=== PATIENT | male | born 1970 | race African-American/Black ===

== ENCOUNTER 2024-04-12 19:40 | Inpatient (IN) | payer MEDICAID ==
[~2024-04-12] VITALS: Ht 175.2 cm; Wt 60.9 kg
[2024-04-12 20:38] VITALS: BP 124/76
[2024-04-12 21:19] LABS: BASO # 0.1 10*3/uL (0.0-0.1); BASO % 0.3 % (0.0-1.0); EOS # 0.1 10*3/uL (0.0-0.4); EOS % 0.5 % (1.0-4.0); MEAN CELL VOLUME 79.7 fl (80.0-94.0); MEAN CORPUSCULAR HGB 24.5 pg (27.0-31.0); MEAN CORPUSCULAR HGB CONC 30.7 g/dl (33.0-37.0); MEAN PLATELET VOLUME 7.9 fl (9.6-12.3); MONO # 1.4 10*3/uL (0.1-1.0); MONO % 9.3 % (3.0-9.0); NEUT # 11.5 10*3/uL (2.3-7.9); NEUT % 76.8 % (47.0-73.0); PLATELET COUNT AUTOMATED 696 10*3/uL (130-400); RED BLOOD COUNT 3.64 10*6/uL (4.50-5.90)
[2024-04-12 21:38] LABS: POTASSIUM 4.6 mmol/L (3.4-5.1)
[2024-04-13] VITALS (8 sets, daily range): BP systolic 111–128; BP diastolic 60–80
[2024-04-13] MEDS ORDERED: Acetaminophen/Hydrocodone 5 MG/325 MG TABLET PO ONE (01:55)
[2024-04-13] MEDS ORDERED: Ondansetron Hydrochloride 4 MG TAB SL ONE (01:55)
[2024-04-13 01:58] LABS: BILIRUBIN Negative (Negative); BLOOD 2+ (Negative); CLARITY Turbid (Clear); COLOR Yellow (Yellow); GLUCOSE Negative (Negative); KETONE Negative (Negative); LEUKO ESTERASE 3+ (Negative); NITRITE Positive (Negative); PH 5.5 (4.5-8.0); SPECIFIC GRAVITY 1.015 (1.001-1.030); UROBILINOGEN 0.2 E.U./dl (0.0-1.0)
[2024-04-13 02:05] LABS: URINE AMPHETAMINES Negative (1000ng/ml); URINE BARBITURATES Negative (200ng/ml); URINE BENZODIAZEPINES Negative (200ng/ml); URINE CANNABINOIDS (THC) Positive (50ng/ml); URINE COCAINE Positive (300ng/ml); URINE METHADONE Negative (300ng/ml); URINE OPIATES Negative (300ng/ml); URINE PHENCYCLIDINE Negative (25ng/ml)
[2024-04-13 02:20] LABS: RBC 16-20 rbc/hpf (0-2); WBC TNTC wbc/hpf (0-5)
[2024-04-13] MEDS ORDERED: SODIUM CHLORIDE 0.9% 1,000 ML IV SCH (02:25)
[2024-04-13] MEDS ORDERED: cefTRIAXone Sodium 1 GM/10 ML SYR IV ONE (02:25)
[2024-04-13] MEDS ORDERED: Vancomycin Hydrochloride 250 ML IV ONE (05:15)
[2024-04-13] MEDS ORDERED: ACETAMINOPHEN 650 MG SUPP R PRN (05:45)
[2024-04-13] MEDS ORDERED: ACETAMINOPHEN 325 MG TAB PO PRN (05:45)
[2024-04-13] MEDS ORDERED: Piperacillin Sodium/Tazobact 50 ML IV SCH ×2 (06:00→08:00)
[2024-04-13] MEDS ORDERED: FAMOTIDINE20 M1 PO (06:08)
[2024-04-13] MEDS ORDERED: QUALITY CHOICE80 MG PO (06:10)
[2024-04-13] MEDS ORDERED: NORTRIPTYLINE H50 M2 PO (06:11)
[2024-04-13] MEDS ORDERED: SENNA8.6 MG PO (06:12)
[2024-04-13] MEDS ORDERED: ONDANSETRON HYDR4 MG PO (06:13)
[2024-04-13] MEDS ORDERED: FEROSUL325 M1 PO (06:14)
[2024-04-13] MEDS ORDERED: ELIQUIS5 M1 PO (06:14)
[2024-04-13] MEDS ORDERED: MIDODRINE HCL5 M1 PO (06:15)
[2024-04-13] MEDS ORDERED: SODIUM BICARBO650 MG PO (06:15)
[2024-04-13] MEDS ORDERED: ACETAMINOPHEN500 M4 PO (06:17)
[2024-04-13] MEDS ORDERED: PHARMASSURE CHE30 MG PO (06:18)
[2024-04-13] MEDS ORDERED: FLUOXETINE HYDR20 M1 PO (06:19)
[2024-04-13] MEDS ORDERED: MELATONIN3 MG PO (06:19)
[2024-04-13 06:45] LABS: BASO % 0.4 % (0.0-1.0); EOS # 0.1 10*3/uL (0.0-0.4); EOS % 0.8 % (1.0-4.0); HEMATOCRIT 24.9 % (42.0-52.0); MEAN CELL VOLUME 78.8 fl (80.0-94.0); MEAN CORPUSCULAR HGB 24.7 pg (27.0-31.0); MEAN CORPUSCULAR HGB CONC 31.3 g/dl (33.0-37.0); MEAN PLATELET VOLUME 8.2 fl (9.6-12.3); MONO # 1.3 10*3/uL (0.1-1.0); MONO % 11.7 % (3.0-9.0); NEUT # 8.3 10*3/uL (2.3-7.9); NEUT % 73.4 % (47.0-73.0); PLATELET COUNT AUTOMATED 566 10*3/uL (130-400); RED BLOOD COUNT 3.16 10*6/uL (4.50-5.90); RED CELL DISTRI WIDTH 16.8 % (0-14.5); WHITE BLOOD COUNT 11.3 10*3/uL (4.8-10.8)
[2024-04-13 06:51] LABS: ALKALINE PHOSPHATASE 126 U/L (46-116); BUN 24 mg/dl (9-23); CHLORIDE 101 mmol/L (98-107); POTASSIUM 4.7 mmol/L (3.4-5.1); TOTAL PROTEIN 7.9 gm/dL (6.0-8.0)
[2024-04-13 07:07] LABS: SGPT/ALT < 7 U/L (5-49)
[2024-04-13] MEDS ORDERED: Polyethylene Glycol 3350 17 GM PACKET PO SCH (10:00)
[2024-04-13] MEDS ORDERED: APIXABAN 5 MG TAB PO SCH (10:00)
[2024-04-13] MEDS ORDERED: IOHEXOL 300 MG/ML 100 ML VIAL IV ONE (11:50)
[2024-04-13] MEDS ORDERED: VANCOMYCIN/WATER FOR INJ (PEG) 250 ML IV SCH (18:00)
[2024-04-13] MEDS ORDERED: BISACODYL 5 MG TAB PO PRN (23:25)
[2024-04-13] MEDS ORDERED: Magnesium Hydroxide 30 ML UDC PO PRN (23:25)
[2024-04-13] MEDS ORDERED: Acetaminophen/Hydrocodone 5 MG/325 MG TABLET PO PRN (23:25)
[2024-04-13] MEDS ORDERED: BISACODYL 10 MG SUPP R PRN (23:25)
[2024-04-13] MEDS ORDERED: MORPHINE Sulfate 2 MG/ML SYR IV PRN (23:25)
[2024-04-14] VITALS: BP 93/50
[2024-04-14 05:13] LABS: ALKALINE PHOSPHATASE 124 U/L (46-116); BUN 16 mg/dl (9-23); CHLORIDE 99 mmol/L (98-107); POTASSIUM 4.3 mmol/L (3.4-5.1); SGPT/ALT 8 U/L (5-49); TOTAL PROTEIN 7.8 gm/dL (6.0-8.0)
[2024-04-14 06:16] LABS: BASO # 0.1 10*3/uL (0.0-0.1); BASO % 0.5 % (0.0-1.0); EOS # 0.2 10*3/uL (0.0-0.4); EOS % 1.6 % (1.0-4.0); HEMATOCRIT 24.9 % (42.0-52.0); MEAN CELL VOLUME 78.8 fl (80.0-94.0); MEAN CORPUSCULAR HGB 24.7 pg (27.0-31.0); MEAN CORPUSCULAR HGB CONC 31.3 g/dl (33.0-37.0); MEAN PLATELET VOLUME 8.3 fl (9.6-12.3); MONO # 0.7 10*3/uL (0.1-1.0); MONO % 6.5 % (3.0-9.0); NEUT # 8.7 10*3/uL (2.3-7.9); NEUT % 85.1 % (47.0-73.0); PLATELET COUNT AUTOMATED 679 10*3/uL (130-400); RED BLOOD COUNT 3.16 10*6/uL (4.50-5.90); RED CELL DISTRI WIDTH 16.7 % (0-14.5); WHITE BLOOD COUNT 10.3 10*3/uL (4.8-10.8)
[2024-04-14 08:00] VITALS: BP 120/64
[2024-04-14] MEDS ORDERED: Sodium Hypochlorite 0.25% (1/2 STRENGTH DAKIN'S) 480 ML SOL T SCH (10:00)
[2024-04-14 12:00] VITALS: BP 105/62
[2024-04-14] MEDS ORDERED: Piperacillin Sodium/Tazobact 50 ML IV SCH (18:00)
[2024-04-14 20:00] VITALS: BP 112/56
[2024-04-14] MEDS ORDERED: Melatonin 5 MG TABLET PO PRN (23:10)
[2024-04-15] VITALS: BP 114/56
[2024-04-15 06:21] LABS: BUN 11 mg/dl (9-23); CHLORIDE 103 mmol/L (98-107)
[2024-04-15 06:26] LABS: BASO % 0.6 % (0.0-1.0); EOS # 0.2 10*3/uL (0.0-0.4); EOS % 3.4 % (1.0-4.0); HEMATOCRIT 25.4 % (42.0-52.0); MEAN CELL VOLUME 79.9 fl (80.0-94.0); MEAN CORPUSCULAR HGB 24.8 pg (27.0-31.0); MEAN CORPUSCULAR HGB CONC 31.1 g/dl (33.0-37.0); MEAN PLATELET VOLUME 8.2 fl (9.6-12.3); MONO # 0.6 10*3/uL (0.1-1.0); MONO % 9.1 % (3.0-9.0); NEUT # 5.2 10*3/uL (2.3-7.9); PLATELET COUNT AUTOMATED 626 10*3/uL (130-400); RED BLOOD COUNT 3.18 10*6/uL (4.50-5.90); RED CELL DISTRI WIDTH 16.8 % (0-14.5); WHITE BLOOD COUNT 6.8 10*3/uL (4.8-10.8)
[2024-04-15 08:00] VITALS: BP 101/58
[2024-04-15] MEDS ORDERED: Ondansetron Hydrochloride 4 MG/2 ML VIAL IV PRN (09:05)
[2024-04-15] MEDS ORDERED: FOAM BANDAGE 1 EACH BANDAGE T ONE ×2 (10:26→11:00)
[2024-04-15] MEDS ORDERED: FOAM BANDAGE HEEL T ONE (10:26)
[2024-04-15] MEDS ORDERED: LEPTOSPERMUM HONEY 0.5 OZ TUBE T ONE (10:59)
[2024-04-15 12:00] VITALS: BP 104/62
[2024-04-15 16:00] VITALS: BP 122/58
[2024-04-15] MEDS ORDERED: METRONIDAZOLE500 M1 PO (17:08)
[2024-04-15] MEDS ORDERED: CEFTRIAXONE2 G1 IV (17:08)
[2024-04-15] MEDS ORDERED: VANC1PIG IV (17:08)
[2024-04-15 20:00] VITALS: BP 121/66
[2024-04-15] MEDS ORDERED: METHOCARBAMOL500 M1 PO (21:39)
[2024-04-15] MEDS ORDERED: GABAPENTIN800 MG PO (21:41)
[2024-04-15] MEDS ORDERED: ACETAMINOPHEN 500 MG TAB PO PRN (21:45)
[2024-04-15] MEDS ORDERED: SIMETHICONE 80 MG TAB PO PRN (21:45)
[2024-04-15] MEDS ORDERED: Melatonin 3 MG TABLET PO PRN (21:45)
[2024-04-15] MEDS ORDERED: METHOCARBAMOL 500 MG TAB PO PRN (21:50)
[2024-04-15] MEDS ORDERED: NORTRIPTYLINE HYDROCHLORIDE PO SCH (22:00)
[2024-04-15] MEDS ORDERED: Sennosides A and B 8.6 MG TAB PO SCH (22:00)
[2024-04-15] MEDS ORDERED: GABAPENTIN 800 MG TAB PO SCH (22:00)
[2024-04-16] VITALS: BP 123/55
[2024-04-16 04:00] VITALS: BP 126/65
[2024-04-16] MEDS ORDERED: VANCOMYCIN/WATER FOR INJ (PEG) 250 ML IV SCH (06:00)
[2024-04-16 06:27] LABS: BASO % 0.3 % (0.0-1.0); EOS # 0.3 10*3/uL (0.0-0.4); EOS % 3.7 % (1.0-4.0); HEMATOCRIT 24.5 % (42.0-52.0); MEAN CELL VOLUME 80.6 fl (80.0-94.0); MEAN CORPUSCULAR HGB 24.3 pg (27.0-31.0); MEAN CORPUSCULAR HGB CONC 30.2 g/dl (33.0-37.0); MEAN PLATELET VOLUME 7.8 fl (9.6-12.3); MONO # 0.7 10*3/uL (0.1-1.0); MONO % 9.8 % (3.0-9.0); NEUT % 71.4 % (47.0-73.0); PLATELET COUNT AUTOMATED 658 10*3/uL (130-400); RED BLOOD COUNT 3.04 10*6/uL (4.50-5.90); RED CELL DISTRI WIDTH 16.8 % (0-14.5)
[2024-04-16 06:45] LABS: BUN 9 mg/dl (9-23); CHLORIDE 105 mmol/L (98-107); POTASSIUM 4.6 mmol/L (3.4-5.1)
[2024-04-16 08:00] VITALS: BP 142/79
[2024-04-16] MEDS ORDERED: Midodrine Hydrochloride 5 MG TAB PO SCH (08:00)
[2024-04-16] MEDS ORDERED: FAMOTIDINE 20 MG TAB PO SCH (10:00)
[2024-04-16] MEDS ORDERED: FLUoxetine Hydrochloride 20 MG CAP PO SCH (10:00)
[2024-04-16] MEDS ORDERED: SODIUM BICARBONATE 650 MG TAB PO SCH (10:00)
[2024-04-16 12:00] VITALS: BP 128/68
[2024-04-16] MEDS ORDERED: LEPTOSPERMUM HONEY 4 X 5 INCH WOUND DRESSING T ONE (13:18)
[2024-04-16] MEDS ORDERED: FOAM BANDAGE HEEL T ONE (13:18)
[2024-04-16] MEDS ORDERED: FOAM BANDAGE 1 EACH BANDAGE T ONE (13:18)
[2024-04-16] MEDS ORDERED: IOHEXOL 300 MG/ML 100 ML VIAL IV ONE (15:15)
[2024-04-16] MEDS ORDERED: IOHEXOL 300 MG/ML 100 ML VIAL ONE (15:31)
[2024-04-16 16:00] VITALS: BP 125/79
[2024-04-16 20:00] VITALS: BP 128/64
[2024-04-17 00:24] VITALS: BP 129/65
[2024-04-17 04:00] VITALS: BP 132/68
[2024-04-17 05:53] LABS: BUN 8 mg/dl (9-23); CHLORIDE 105 mmol/L (98-107); POTASSIUM 4.3 mmol/L (3.4-5.1)
[2024-04-17 06:02] LABS: BASO % 0.4 % (0.0-1.0); EOS # 0.2 10*3/uL (0.0-0.4); EOS % 2.9 % (1.0-4.0); HEMATOCRIT 23.4 % (42.0-52.0); MEAN CELL VOLUME 80.1 fl (80.0-94.0); MEAN CORPUSCULAR HGB 24.7 pg (27.0-31.0); MEAN CORPUSCULAR HGB CONC 30.8 g/dl (33.0-37.0); MEAN PLATELET VOLUME 7.8 fl (9.6-12.3); MONO # 0.6 10*3/uL (0.1-1.0); MONO % 8.9 % (3.0-9.0); NEUT # 5.1 10*3/uL (2.3-7.9); NEUT % 70.7 % (47.0-73.0); PLATELET COUNT AUTOMATED 585 10*3/uL (130-400); RED BLOOD COUNT 2.92 10*6/uL (4.50-5.90); WHITE BLOOD COUNT 7.2 10*3/uL (4.8-10.8)
[2024-04-17 08:00] VITALS: BP 124/73
[2024-04-17] MEDS ORDERED: FERROUS SULFATE 325 MG TAB PO SCH (10:00)
[2024-04-17 12:00] VITALS: BP 135/65
[2024-04-17] MEDS ORDERED: FOAM BANDAGE 1 EACH BANDAGE T ONE ×2 (12:43→13:23)
[2024-04-17] MEDS ORDERED: Lactobacillus Acidophilus/LA 1 TAB TAB PO SCH (14:35)
[2024-04-17 16:00] VITALS: BP 127/58
[2024-04-17 20:00] VITALS: BP 103/75
[2024-04-17] MEDS ORDERED: NYSTATIN 500,000 UNITS/5 ML UDC PO SCH (22:00)
[2024-04-17 22:04] LABS: BILIRUBIN Negative (Negative); BLOOD 2+ (Negative); CLARITY Cloudy (Clear); COLOR Yellow (Yellow); GLUCOSE Negative (Negative); KETONE Negative (Negative); LEUKO ESTERASE 3+ (Negative); NITRITE Negative (Negative); PH 5.5 (4.5-8.0); UROBILINOGEN 0.2 E.U./dl (0.0-1.0)
[2024-04-17 22:14] LABS: BACTERIA 2+; RBC 21-30 rbc/hpf (0-2); WBC 51-100 wbc/hpf (0-5)
[2024-04-18] VITALS: BP 133/67
[2024-04-18 04:00] VITALS: BP 129/66
[2024-04-18 06:02] LABS: BUN 9 mg/dl (9-23); CHLORIDE 105 mmol/L (98-107); POTASSIUM 4.2 mmol/L (3.4-5.1)
[2024-04-18 06:08] LABS: BASO # 0.1 10*3/uL (0.0-0.1); BASO % 0.5 % (0.0-1.0); EOS # 0.3 10*3/uL (0.0-0.4); EOS % 2.4 % (1.0-4.0); HEMATOCRIT 24.2 % (42.0-52.0); MEAN CELL VOLUME 80.4 fl (80.0-94.0); MEAN CORPUSCULAR HGB 24.9 pg (27.0-31.0); MEAN PLATELET VOLUME 7.8 fl (9.6-12.3); MONO # 0.8 10*3/uL (0.1-1.0); MONO % 8.1 % (3.0-9.0); NEUT # 7.1 10*3/uL (2.3-7.9); NEUT % 69.7 % (47.0-73.0); PLATELET COUNT AUTOMATED 575 10*3/uL (130-400); RED BLOOD COUNT 3.01 10*6/uL (4.50-5.90); RED CELL DISTRI WIDTH 17.3 % (0-14.5); WHITE BLOOD COUNT 10.2 10*3/uL (4.8-10.8)
[2024-04-18 08:00] VITALS: BP 119/69
[2024-04-18] MEDS ORDERED: Vancomycin Hydrochloride 1,000 MG in SODIUM CHLORIDE 0.9% 250 ML IV SCH (08:00)
[2024-04-18 12:00] VITALS: BP 140/85
[2024-04-18 16:00] VITALS: BP 122/64
[2024-04-18 20:00] VITALS: BP 142/80
[2024-04-18] MEDS ORDERED: FLUCONAZOLE 200 ML IV SCH (20:00)
[2024-04-19] VITALS: BP 144/75
[2024-04-19 06:33] LABS: BASO # 0.1 10*3/uL (0.0-0.1); BASO % 0.6 % (0.0-1.0); EOS # 0.2 10*3/uL (0.0-0.4); EOS % 2.1 % (1.0-4.0); HEMATOCRIT 23.2 % (42.0-52.0); MEAN CELL VOLUME 81.1 fl (80.0-94.0); MEAN CORPUSCULAR HGB 24.8 pg (27.0-31.0); MEAN CORPUSCULAR HGB CONC 30.6 g/dl (33.0-37.0); MONO # 0.9 10*3/uL (0.1-1.0); MONO % 8.3 % (3.0-9.0); NEUT # 8.1 10*3/uL (2.3-7.9); NEUT % 72.9 % (47.0-73.0); PLATELET COUNT AUTOMATED 588 10*3/uL (130-400); RED BLOOD COUNT 2.86 10*6/uL (4.50-5.90); RED CELL DISTRI WIDTH 17.6 % (0-14.5); WHITE BLOOD COUNT 11.2 10*3/uL (4.8-10.8)
[2024-04-19 06:52] LABS: BUN 9 mg/dl (9-23); CHLORIDE 105 mmol/L (98-107); POTASSIUM 4.1 mmol/L (3.4-5.1)
[2024-04-19 08:00] VITALS: BP 116/79
[2024-04-19] MEDS ORDERED: FOAM BANDAGE 1 EACH BANDAGE T ONE ×2 (11:20→11:29)
[2024-04-19 12:00] VITALS: BP 120/53
[2024-04-19 16:00] VITALS: BP 129/60
[2024-04-19] MEDS ORDERED: HEEL PROTECTOR DEVICE ONE (16:07)
[2024-04-19 20:00] VITALS: BP 136/77
[2024-04-20] VITALS: BP 137/66
[2024-04-20] MEDS ORDERED: Dicyclomine Hydrochloride 20 MG/10 ML OSYR PO STA (00:12)
[2024-04-20] MEDS ORDERED: Lidocaine Hydrochloride 15 ML UDC PO STA (00:12)
[2024-04-20] MEDS ORDERED: MG-AL HYDROXIDE/SIMETICONE 30 ML UDC PO STA (00:12)
[2024-04-20 00:22] VITALS: BP 142/79
[2024-04-20 07:53] LABS: BASO % 0.6 % (0.0-1.0); EOS # 0.2 10*3/uL (0.0-0.4); EOS % 3.1 % (1.0-4.0); MEAN CELL VOLUME 81.4 fl (80.0-94.0); MEAN CORPUSCULAR HGB 24.4 pg (27.0-31.0); MEAN PLATELET VOLUME 7.8 fl (9.6-12.3); MONO # 0.7 10*3/uL (0.1-1.0); MONO % 9.6 % (3.0-9.0); NEUT # 4.6 10*3/uL (2.3-7.9); NEUT % 65.1 % (47.0-73.0); PLATELET COUNT AUTOMATED 576 10*3/uL (130-400); RED BLOOD COUNT 3.07 10*6/uL (4.50-5.90); RED CELL DISTRI WIDTH 17.7 % (0-14.5); WHITE BLOOD COUNT 7.1 10*3/uL (4.8-10.8)
[2024-04-20 08:00] VITALS: BP 127/74
[2024-04-20 08:02] LABS: BUN 8 mg/dl (9-23); CHLORIDE 106 mmol/L (98-107); POTASSIUM 4.3 mmol/L (3.4-5.1)
[2024-04-20 12:00] VITALS: BP 124/81
[2024-04-20 16:00] VITALS: BP 145/74
[2024-04-20] MEDS ORDERED: FOAM BANDAGE 1 EACH BANDAGE T ONE ×2 (16:20→16:49)
[2024-04-20] MEDS ORDERED: FOAM BANDAGE HEEL T ONE (16:20)
[2024-04-20] MEDS ORDERED: LEPTOSPERMUM HONEY 0.5 OZ TUBE T ONE (16:21)
[2024-04-20 20:00] VITALS: BP 134/83
[2024-04-21] VITALS (7 sets, daily range): BP systolic 122–145; BP diastolic 62–91
[2024-04-21 06:08] LABS: HEMATOCRIT 23.1 % (42.0-52.0); MEAN CELL VOLUME 81.3 fl (80.0-94.0); MEAN CORPUSCULAR HGB CONC 30.7 g/dl (33.0-37.0); MEAN PLATELET VOLUME 8.1 fl (9.6-12.3); PLATELET COUNT AUTOMATED 552 10*3/uL (130-400); RED BLOOD COUNT 2.84 10*6/uL (4.50-5.90); RED CELL DISTRI WIDTH 17.9 % (0-14.5); WHITE BLOOD COUNT 8.9 10*3/uL (4.8-10.8)
[2024-04-21 06:12] LABS: MANUAL DIFF REFLEX YES
[2024-04-21 06:23] LABS: BUN 9 mg/dl (9-23); CHLORIDE 106 mmol/L (98-107); POTASSIUM 4.8 mmol/L (3.4-5.1)
[2024-04-21 06:52] LABS: BASOPHILS 1 % (0-1); POLYCHROMASIA SLIGHT; TARGET CELLS FEW; TOTAL CELLS COUNTED 100 #CELLS
[2024-04-21 06:53] LABS: PLATELET SUFFICIENCY HIGH (NORMAL); VACUOLATION OF NEUTROPHILS SLIGHT
[2024-04-21] MEDS ORDERED: Lactated Ringer's Solution 500 ML IV ONE (12:50)
[2024-04-21] MEDS ORDERED: Vancomycin Hydrochloride 1,000 MG VIAL ONE (13:26)
[2024-04-21] MEDS ORDERED: BUPivacaine 0.5% 30 ML IV ONE (13:26)
[2024-04-21] MEDS ORDERED: Acetaminophen/Hydrocodone 5 MG/325 MG TABLET PO PRN (15:05)
[2024-04-21] MEDS ORDERED: Midazolam Hydrochloride 2 MG/2 ML VIAL IV ONE (17:48)
[2024-04-22] VITALS (11 sets, daily range): BP systolic 118–141; BP diastolic 61–86
[2024-04-22 07:01] LABS: HEMATOCRIT 22.1 % (42.0-52.0); MEAN CELL VOLUME 81.9 fl (80.0-94.0); MEAN CORPUSCULAR HGB 25.2 pg (27.0-31.0); MEAN CORPUSCULAR HGB CONC 30.8 g/dl (33.0-37.0); MEAN PLATELET VOLUME 8.1 fl (9.6-12.3); PLATELET COUNT AUTOMATED 461 10*3/uL (130-400); RED CELL DISTRI WIDTH 18.1 % (0-14.5)
[2024-04-22 07:05] LABS: MANUAL DIFF REFLEX YES
[2024-04-22 07:36] LABS: BUN 11 mg/dl (9-23); CHLORIDE 107 mmol/L (98-107); POTASSIUM 4.4 mmol/L (3.4-5.1)
[2024-04-22] MEDS ORDERED: SODIUM CHLORIDE 0.9% 500 ML IV SCH (07:50)
[2024-04-22 08:39] LABS: ROULEAUX MARKED; TOTAL CELLS COUNTED 100 #CELLS
[2024-04-22 08:40] LABS: PLATELET SUFFICIENCY HIGH (NORMAL); POLYCHROMASIA SLIGHT
[2024-04-22 13:06] LABS: ACID FAST SPEC PROCESSING Tissue Grinding (.)
[2024-04-22 13:06] LABS: ACID FAST SPEC PROCESSING Tissue Grinding (.)
[2024-04-22 13:06] LABS: ACID FAST SPEC PROCESSING Tissue Grinding (.)
[2024-04-22 13:06] LABS: ACID FAST SPEC PROCESSING Tissue Grinding (.)
[2024-04-22] MEDS ORDERED: Sodium Hypochlorite 0.25% (1/2 STRENGTH DAKIN'S) 480 ML SOL T SCH (23:45)
[2024-04-22] MEDS ORDERED: FOAM BANDAGE 1 EACH BANDAGE T ONE (23:47)
[2024-04-23] VITALS: BP 137/71
[2024-04-23] MEDS ORDERED: FLUCONAZOLE200 MG PO (02:52)
[2024-04-23 07:21] LABS: BASO % 0.4 % (0.0-1.0); EOS # 0.2 10*3/uL (0.0-0.4); EOS % 2.8 % (1.0-4.0); HEMATOCRIT 28.3 % (42.0-52.0); MEAN CELL VOLUME 84.7 fl (80.0-94.0); MEAN CORPUSCULAR HGB CONC 30.7 g/dl (33.0-37.0); MEAN PLATELET VOLUME 7.8 fl (9.6-12.3); MONO # 0.7 10*3/uL (0.1-1.0); MONO % 8.8 % (3.0-9.0); NEUT # 4.9 10*3/uL (2.3-7.9); NEUT % 64.8 % (47.0-73.0); NUCLEATED RED BLOOD CELL 0.3 % (0.0-0.0); PLATELET COUNT AUTOMATED 482 10*3/uL (130-400); RED BLOOD COUNT 3.34 10*6/uL (4.50-5.90); RED CELL DISTRI WIDTH 17.9 % (0-14.5); WHITE BLOOD COUNT 7.5 10*3/uL (4.8-10.8)
[2024-04-23 07:31] LABS: ALKALINE PHOSPHATASE 125 U/L (46-116); BUN 11 mg/dl (9-23); CHLORIDE 105 mmol/L (98-107); POTASSIUM 4.7 mmol/L (3.4-5.1); SGPT/ALT 28 U/L (5-49); TOTAL PROTEIN 7.3 gm/dL (6.0-8.0)
[2024-04-23 08:00] VITALS: BP 134/82
[2024-04-23] MEDS ORDERED: VANCOMYCIN/WATER FOR INJ (PEG) 250 ML IV SCH (08:22)
[2024-04-23 12:00] VITALS: BP 136/86
[2024-04-23 16:00] VITALS: BP 131/72
[2024-04-23 20:00] VITALS: BP 136/78
[2024-04-24] VITALS: BP 137/79
[2024-04-24] MEDS ORDERED: Piperacillin Sodium/Tazobact 50 ML IV SCH
[2024-04-24 06:50] LABS: BASO % 0.4 % (0.0-1.0); EOS # 0.2 10*3/uL (0.0-0.4); EOS % 2.3 % (1.0-4.0); HEMATOCRIT 27.5 % (42.0-52.0); MEAN CELL VOLUME 86.2 fl (80.0-94.0); MEAN CORPUSCULAR HGB 25.7 pg (27.0-31.0); MEAN CORPUSCULAR HGB CONC 29.8 g/dl (33.0-37.0); MEAN PLATELET VOLUME 8.3 fl (9.6-12.3); MONO # 0.9 10*3/uL (0.1-1.0); NEUT # 6.3 10*3/uL (2.3-7.9); NEUT % 67.1 % (47.0-73.0); NUCLEATED RED BLOOD CELL 0.2 % (0.0-0.0); PLATELET COUNT AUTOMATED 518 10*3/uL (130-400); RED BLOOD COUNT 3.19 10*6/uL (4.50-5.90); RED CELL DISTRI WIDTH 18.6 % (0-14.5); WHITE BLOOD COUNT 9.5 10*3/uL (4.8-10.8)
[2024-04-24 07:12] LABS: BUN 16 mg/dl (9-23); CHLORIDE 103 mmol/L (98-107); POTASSIUM 4.9 mmol/L (3.4-5.1)
[2024-04-24 08:00] VITALS: BP 141/91
[2024-04-24] MEDS ORDERED: FOAM BANDAGE 1 EACH BANDAGE T ONE (10:25)
[2024-04-24] MEDS ORDERED: FOAM BANDAGE 5X5 T ONE (10:25)
[2024-04-24 12:00] VITALS: BP 141/64
[2024-04-24 16:00] VITALS: BP 146/75
[2024-04-24 20:00] VITALS: BP 139/75
[2024-04-24] MEDS ORDERED: DALVANCE500 MG IV (23:01)
[2024-04-25] VITALS: BP 146/78
[2024-04-25 06:27] LABS: BASO # 0.1 10*3/uL (0.0-0.1); BASO % 0.5 % (0.0-1.0); EOS # 0.3 10*3/uL (0.0-0.4); EOS % 3.1 % (1.0-4.0); HEMATOCRIT 26.2 % (42.0-52.0); MEAN CORPUSCULAR HGB 26.3 pg (27.0-31.0); MEAN CORPUSCULAR HGB CONC 31.3 g/dl (33.0-37.0); MEAN PLATELET VOLUME 8.3 fl (9.6-12.3); MONO % 9.9 % (3.0-9.0); NEUT # 6.7 10*3/uL (2.3-7.9); NEUT % 70.4 % (47.0-73.0); NUCLEATED RED BLOOD CELL 0.2 % (0.0-0.0); PLATELET COUNT AUTOMATED 479 10*3/uL (130-400); RED BLOOD COUNT 3.12 10*6/uL (4.50-5.90); RED CELL DISTRI WIDTH 19.5 % (0-14.5); WHITE BLOOD COUNT 9.6 10*3/uL (4.8-10.8)
[2024-04-25 06:56] LABS: BUN 20 mg/dl (9-23); CHLORIDE 102 mmol/L (98-107); POTASSIUM 5.5 mmol/L (3.4-5.1)
[2024-04-25 08:00] VITALS: BP 136/74
[2024-04-25] MEDS ORDERED: FOAM BANDAGE 1 EACH BANDAGE T ONE (08:43)
[2024-04-25] MEDS ORDERED: SODIUM POLYSTYRENE SULFONATE 15 GM/60 ML BOT PO ONE (10:20)
[2024-04-25 12:00] VITALS: BP 134/87
[2024-04-25 16:00] VITALS: BP 122/78
[2024-04-25] MEDS ORDERED: LEVOFLOXACIN 750 MG TAB PO SCH (16:13)
[2024-04-25 21:00] VITALS: BP 138/73
[2024-04-25] MEDS ORDERED: LEVOFLOXACIN750 M2 PO (23:07)
[2024-04-26] VITALS: BP 140/75
[2024-04-26 07:05] LABS: BASO % 0.4 % (0.0-1.0); EOS # 0.2 10*3/uL (0.0-0.4); EOS % 2.1 % (1.0-4.0); HEMATOCRIT 27.8 % (42.0-52.0); MEAN CELL VOLUME 85.8 fl (80.0-94.0); MEAN CORPUSCULAR HGB 25.9 pg (27.0-31.0); MEAN CORPUSCULAR HGB CONC 30.2 g/dl (33.0-37.0); MEAN PLATELET VOLUME 8.2 fl (9.6-12.3); NEUT # 7.8 10*3/uL (2.3-7.9); NEUT % 72.6 % (47.0-73.0); PLATELET COUNT AUTOMATED 475 10*3/uL (130-400); RED BLOOD COUNT 3.24 10*6/uL (4.50-5.90); RED CELL DISTRI WIDTH 19.4 % (0-14.5); WHITE BLOOD COUNT 10.7 10*3/uL (4.8-10.8)
[2024-04-26 07:28] LABS: BUN 18 mg/dl (9-23); CHLORIDE 101 mmol/L (98-107); POTASSIUM 5.3 mmol/L (3.4-5.1)
[2024-04-26 08:00] VITALS: BP 137/79
[2024-04-26] MEDS ORDERED: SODIUM POLYSTYRENE SULFONATE 15 GM/60 ML BOT PO ONE (08:15)
[2024-04-26] MEDS ORDERED: FLUCONAZOLE 100 MG TAB PO SCH (12:05)
[2024-04-26] MEDS ORDERED: SODIUM CHLORIDE 0.9% 1,000 ML IV SCH (12:15)
[2024-04-26] MEDS ORDERED: SODIUM CHLORIDE 0.9% 1,000 ML IV ONE (13:30)
[2024-04-26 16:00] VITALS: BP 134/80
[2024-04-26 20:00] VITALS: BP 148/80
[2024-04-27] VITALS: BP 138/78
[2024-04-27 06:10] LABS: BASO # 0.1 10*3/uL (0.0-0.1); BASO % 0.4 % (0.0-1.0); EOS # 0.2 10*3/uL (0.0-0.4); HEMATOCRIT 27.4 % (42.0-52.0); MEAN CELL VOLUME 85.1 fl (80.0-94.0); MEAN CORPUSCULAR HGB 26.1 pg (27.0-31.0); MEAN CORPUSCULAR HGB CONC 30.7 g/dl (33.0-37.0); MEAN PLATELET VOLUME 8.2 fl (9.6-12.3); MONO # 1.2 10*3/uL (0.1-1.0); MONO % 10.2 % (3.0-9.0); NEUT # 8.6 10*3/uL (2.3-7.9); NEUT % 72.1 % (47.0-73.0); PLATELET COUNT AUTOMATED 480 10*3/uL (130-400); RED BLOOD COUNT 3.22 10*6/uL (4.50-5.90); RED CELL DISTRI WIDTH 19.6 % (0-14.5)
[2024-04-27 06:30] LABS: BUN 18 mg/dl (9-23); CHLORIDE 101 mmol/L (98-107); POTASSIUM 5.4 mmol/L (3.4-5.1)
[2024-04-27 08:00] VITALS: BP 124/74
[2024-04-27] MEDS ORDERED: SODIUM CHLORIDE 0.9% 1,000 ML IV ONE (09:20)
[2024-04-27] MEDS ORDERED: FUROSEMIDE 40 MG/4 ML VIAL IV ONE (09:20)
[2024-04-27] MEDS ORDERED: FOAM BANDAGE 1 EACH BANDAGE T ONE ×2 (11:29→11:54)
[2024-04-27] MEDS ORDERED: FOAM BANDAGE 5X5 T ONE (11:29)
[2024-04-27 12:09] VITALS: BP 123/90
[2024-04-27] MEDS ORDERED: metroNIDAZOLE 500 MG TAB PO SCH (14:00)
[2024-04-27 16:00] VITALS: BP 119/78
[2024-04-27] MEDS ORDERED: Piperacillin Sodium/Tazobact 4.5 GM in SODIUM CHLORIDE 0.9% 100 ML IV SCH (22:00)
[2024-04-27] MEDS ORDERED: Sodium Hypochlorite 0.25% (1/2 STRENGTH DAKIN'S) 480 ML SOL T SCH (22:00)
[2024-04-28] VITALS: BP 119/61
[2024-04-28 06:15] LABS: HEMATOCRIT 30.8 % (42.0-52.0); MEAN CORPUSCULAR HGB CONC 29.9 g/dl (33.0-37.0); MEAN PLATELET VOLUME 8.1 fl (9.6-12.3); PLATELET COUNT AUTOMATED 458 10*3/uL (130-400); RED BLOOD COUNT 3.54 10*6/uL (4.50-5.90); RED CELL DISTRI WIDTH 19.6 % (0-14.5); WHITE BLOOD COUNT 8.9 10*3/uL (4.8-10.8)
[2024-04-28 06:29] LABS: MANUAL DIFF REFLEX YES
[2024-04-28 07:36] LABS: BUN 19 mg/dl (9-23); CHLORIDE 102 mmol/L (98-107); POTASSIUM 5.8 mmol/L (3.4-5.1)
[2024-04-28] MEDS ORDERED: SODIUM POLYSTYRENE SULFONATE 15 GM/60 ML BOT PO ONE (07:55)
[2024-04-28 07:57] LABS: BASOPHILS 1 % (0-1); TOTAL CELLS COUNTED 100 #CELLS
[2024-04-28 08:00] VITALS: BP 130/82
[2024-04-28 08:00] LABS: POLYCHROMASIA SLIGHT
[2024-04-28 08:04] LABS: PLATELET SUFFICIENCY HIGH (NORMAL)
[2024-04-28] MEDS ORDERED: FOAM BANDAGE 1 EACH BANDAGE T ONE (09:03)
[2024-04-28 12:00] VITALS: BP 131/75
[2024-04-28 16:00] VITALS: BP 128/63
[2024-04-28 18:35] LABS: BILIRUBIN Negative (Negative); BLOOD Trace-Intact (Negative); CLARITY Clear (Clear); COLOR Yellow (Yellow); GLUCOSE Negative (Negative); KETONE Negative (Negative); LEUKO ESTERASE Trace (Negative); NITRITE Negative (Negative); UROBILINOGEN 0.2 E.U./dl (0.0-1.0)
[2024-04-28 18:46] LABS: BACTERIA 1+
[2024-04-28 18:47] LABS: MUCOUS TRACE
[2024-04-28 20:00] VITALS: BP 122/81
[2024-04-29] VITALS: BP 135/70
[2024-04-29] MEDS ORDERED: SIMETHICONE 40 MG/0.6 ML PO PRN (01:40)
[2024-04-29] MEDS ORDERED: Acetaminophen/Hydrocodone 5 MG/325 MG TABLET PO PRN (05:40)
[2024-04-29 06:14] LABS: BASO # 0.1 10*3/uL (0.0-0.1); BASO % 0.6 % (0.0-1.0); EOS # 0.3 10*3/uL (0.0-0.4); EOS % 2.7 % (1.0-4.0); HEMATOCRIT 29.2 % (42.0-52.0); MEAN CELL VOLUME 84.6 fl (80.0-94.0); MEAN CORPUSCULAR HGB 25.8 pg (27.0-31.0); MEAN CORPUSCULAR HGB CONC 30.5 g/dl (33.0-37.0); MEAN PLATELET VOLUME 8.2 fl (9.6-12.3); MONO # 0.9 10*3/uL (0.1-1.0); MONO % 9.4 % (3.0-9.0); NEUT # 7.4 10*3/uL (2.3-7.9); NEUT % 73.7 % (47.0-73.0); PLATELET COUNT AUTOMATED 476 10*3/uL (130-400); RED BLOOD COUNT 3.45 10*6/uL (4.50-5.90); RED CELL DISTRI WIDTH 19.6 % (0-14.5)
[2024-04-29 06:50] LABS: ALKALINE PHOSPHATASE 203 U/L (46-116); BUN 24 mg/dl (9-23); CHLORIDE 103 mmol/L (98-107); LDH 148 U/L (120-246); POTASSIUM 5.8 mmol/L (3.4-5.1); SGPT/ALT 48 U/L (5-49); TOTAL PROTEIN 8.8 gm/dL (6.0-8.0)
[2024-04-29] MEDS ORDERED: FOAM BANDAGE 1 EACH BANDAGE T ONE ×2 (06:54→21:47)
[2024-04-29 08:00] VITALS: BP 155/92
[2024-04-29] MEDS ORDERED: SIMETHICONE 40 MG/0.6 ML PO ONE (08:25)
[2024-04-29] MEDS ORDERED: SODIUM CHLORIDE 0.9% 1,000 ML IV SCH (08:35)
[2024-04-29] MEDS ORDERED: Dicyclomine Hydrochloride 20 MG TAB PO ONE (10:55)
[2024-04-29 12:00] VITALS: BP 139/79
[2024-04-29] MEDS ORDERED: DALVANCE500 MG IV (13:48)
[2024-04-29 16:00] VITALS: BP 131/70
[2024-04-29] MEDS ORDERED: SODIUM POLYSTYRENE SULFONATE 15 GM/60 ML BOT PO ONE (18:55)
[2024-04-29 20:00] VITALS: BP 139/79
[2024-04-30] VITALS: BP 126/74
[2024-04-30 05:40] LABS: BUN 22 mg/dl (9-23); CHLORIDE 102 mmol/L (98-107)
[2024-04-30 05:42] LABS: POTASSIUM 6.4 mmol/L (3.4-5.1)
[2024-04-30] MEDS ORDERED: SODIUM POLYSTYRENE SULFONATE 15 GM/60 ML BOT PO ONE (05:45)
[2024-04-30] MEDS ORDERED: CALCIUM GLUC IN NACL, ISO-OSM 100 ML IV ONE (06:15)
[2024-04-30] MEDS ORDERED: DEXTROSE 10 % IN WATER 250 ML DEHP.FR.BG IV ONE (06:20)
[2024-04-30] MEDS ORDERED: INSULIN LISPRO 1 UNIT/0.01 ML SQ ONE (06:20)
[2024-04-30 06:33] LABS: BASO # 0.1 10*3/uL (0.0-0.1); BASO % 0.6 % (0.0-1.0); EOS # 0.3 10*3/uL (0.0-0.4); EOS % 3.2 % (1.0-4.0); HEMATOCRIT 28.5 % (42.0-52.0); MEAN CELL VOLUME 84.8 fl (80.0-94.0); MEAN CORPUSCULAR HGB 25.6 pg (27.0-31.0); MEAN CORPUSCULAR HGB CONC 30.2 g/dl (33.0-37.0); MEAN PLATELET VOLUME 8.3 fl (9.6-12.3); MONO # 1.1 10*3/uL (0.1-1.0); MONO % 10.5 % (3.0-9.0); NEUT # 7.5 10*3/uL (2.3-7.9); NEUT % 72.8 % (47.0-73.0); PLATELET COUNT AUTOMATED 471 10*3/uL (130-400); RED BLOOD COUNT 3.36 10*6/uL (4.50-5.90); RED CELL DISTRI WIDTH 19.4 % (0-14.5); WHITE BLOOD COUNT 10.3 10*3/uL (4.8-10.8)
[2024-04-30 08:00] VITALS: BP 133/80
[2024-04-30] MEDS ORDERED: FOAM BANDAGE 1 EACH BANDAGE T ONE ×2 (09:29→23:11)
[2024-04-30] MEDS ORDERED: SODIUM POLYSTYRENE SULFONATE 15 GM/60 ML BOT PO SCH (10:00)
[2024-04-30 10:32] LABS: BUN 21 mg/dl (9-23); CHLORIDE 103 mmol/L (98-107)
[2024-04-30 10:39] LABS: POTASSIUM 4.3 mmol/L (3.4-5.1)
[2024-04-30 12:00] VITALS: BP 127/69
[2024-04-30] MEDS ORDERED: DAPTOMYCIN500 MG/50 IV (14:22)
[2024-04-30] MEDS ORDERED: KIMYRSA1200 MG IV (14:22)
[2024-04-30 16:00] VITALS: BP 135/76
[2024-04-30 20:00] VITALS: BP 137/77
[2024-05-01] VITALS: BP 141/77
[2024-05-01 06:33] LABS: BASO # 0.1 10*3/uL (0.0-0.1); BASO % 0.6 % (0.0-1.0); EOS # 0.3 10*3/uL (0.0-0.4); EOS % 4.4 % (1.0-4.0); HEMATOCRIT 26.6 % (42.0-52.0); MEAN CELL VOLUME 86.1 fl (80.0-94.0); MEAN CORPUSCULAR HGB 26.2 pg (27.0-31.0); MEAN CORPUSCULAR HGB CONC 30.5 g/dl (33.0-37.0); MEAN PLATELET VOLUME 8.2 fl (9.6-12.3); NEUT # 4.9 10*3/uL (2.3-7.9); NEUT % 62.5 % (47.0-73.0); PLATELET COUNT AUTOMATED 401 10*3/uL (130-400); RED BLOOD COUNT 3.09 10*6/uL (4.50-5.90); RED CELL DISTRI WIDTH 19.6 % (0-14.5); WHITE BLOOD COUNT 7.8 10*3/uL (4.8-10.8)
[2024-05-01 06:35] LABS: BUN 19 mg/dl (9-23); CHLORIDE 104 mmol/L (98-107)
[2024-05-01 06:50] LABS: POTASSIUM 5.3 mmol/L (3.4-5.1)
[2024-05-01 08:00] VITALS: BP 126/73
[2024-05-01 12:00] VITALS: BP 122/67
[2024-05-01 16:00] VITALS: BP 135/63
[2024-05-01 20:00] VITALS: BP 127/84
[2024-05-02] VITALS: BP 128/74
[2024-05-02 06:24] LABS: BUN 18 mg/dl (9-23); CHLORIDE 104 mmol/L (98-107); POTASSIUM 5.2 mmol/L (3.4-5.1)
[2024-05-02 08:00] VITALS: BP 119/71
[2024-05-02 12:00] VITALS: BP 141/78
[2024-05-02 16:00] VITALS: BP 132/64
[2024-05-02 20:00] VITALS: BP 144/63
[2024-05-03] VITALS: BP 141/58
[2024-05-03 07:50] LABS: BUN 19 mg/dl (9-23); CHLORIDE 103 mmol/L (98-107)
[2024-05-03 08:00] VITALS: BP 128/84
[2024-05-03] MEDS ORDERED: hydroCHLOROthiazide 12.5 MG CAP PO SCH (10:00)
[2024-05-03 12:00] VITALS: BP 111/71
[2024-05-03] MEDS ORDERED: HYDR12.5C PO (15:59)
[2024-05-03] MEDS ORDERED: LACTINEX 0.2 MG1 TAB PO (15:59)
[2024-05-03] MEDS ORDERED: VELTASSA8.4 GM PO (15:59)
[2024-05-03 16:00] VITALS: BP 141/70
[2024-05-03 20:00] VITALS: BP 142/70
[2024-05-04] VITALS: BP 136/73
[2024-05-04] MEDS ORDERED: FOAM BANDAGE 1 EACH BANDAGE T ONE ×2 (06:22→08:16)
[2024-05-04 08:00] VITALS: BP 133/79
== END 2024-05-04 09:30 | DRG 710 ==
LOC: ED 19:40 → 4E 04-13 05:30 → EDHOLD 04-13 05:30 → 4E 04-13 08:30
PROVIDERS: Internal Medicine; Internal Medicine Infectious Disease; Podiatrist; Student in an Organized Health Care Education/Training Program; ADMIT Family Medicine; ATTEND Family Medicine
PROC: 0QB10ZZ Excision of Sacrum, Open Approach (ICD-10-PCS; 2024-04-13)
PROC: 0QBM0ZZ Excision of Left Tarsal, Open Approach (ICD-10-PCS; 2024-04-13)
PROC: 0QBL0ZZ Excision of Right Tarsal, Open Approach (ICD-10-PCS; 2024-04-13)
PROC: 02HV33Z Insertion of Infusion Device into Superior Vena Cava, Percutaneous Approach (ICD-10-PCS; 2024-04-14)
PROC: B548ZZA Ultrasonography of Superior Vena Cava, Guidance (ICD-10-PCS; 2024-04-14)
PROC: 0QBL0ZZ Excision of Right Tarsal, Open Approach (ICD-10-PCS; 2024-04-16)
PROC: 0QBM0ZZ Excision of Left Tarsal, Open Approach (ICD-10-PCS; 2024-04-16)
PROC: 0QB10ZZ Excision of Sacrum, Open Approach (ICD-10-PCS; 2024-04-16)
PROC: 0QBL0ZX Excision of Right Tarsal, Open Approach, Diagnostic (ICD-10-PCS; 2024-04-21)
PROC: 0QBM0ZX Excision of Left Tarsal, Open Approach, Diagnostic (ICD-10-PCS; 2024-04-21)
PROC: 2W1TX6Z Compression of Left Foot using Pressure Dressing (ICD-10-PCS; 2024-04-21)
PROC: 2W1SX6Z Compression of Right Foot using Pressure Dressing (ICD-10-PCS; 2024-04-21)
PROC: 30233N1 Transfusion of Nonautologous Red Blood Cells into Peripheral Vein, Percutaneous Approach (ICD-10-PCS; principal; 2024-04-22)
DX: A41.9 Sepsis, unspecified organism (principal); T83.511A Infection and inflammatory reaction due to indwelling urethral catheter, initial encounter; M86.8X8 Other osteomyelitis, other site; N17.0 Acute kidney failure with tubular necrosis; C90.00 Multiple myeloma not having achieved remission; L89.154 Pressure ulcer of sacral region, stage 4; E43 Unspecified severe protein-calorie malnutrition; R13.10 Dysphagia, unspecified; G83.9 Paralytic syndrome, unspecified; L89.614 Pressure ulcer of right heel, stage 4; L89.624 Pressure ulcer of left heel, stage 4; T84.038A Mechanical loosening of other internal prosthetic joint, initial encounter; E87.8 Other disorders of electrolyte and fluid balance, not elsewhere classified; N18.32 Chronic kidney disease, stage 3b; Y92.239 Unspecified place in hospital as the place of occurrence of the external cause; N39.0 Urinary tract infection, site not specified; R65.20 Severe sepsis without septic shock; Y83.8 Other surgical procedures as the cause of abnormal reaction of the patient, or of later complication, without mention of misadventure at the time of the procedure; Y92.89 Other specified places as the place of occurrence of the external cause; D75.839 Thrombocytosis, unspecified; R73.9 Hyperglycemia, unspecified; F14.93 Cocaine use, unspecified with withdrawal; K21.9 Gastro-esophageal reflux disease without esophagitis; F41.1 Generalized anxiety disorder; G62.9 Polyneuropathy, unspecified; E87.5 Hyperkalemia; D50.9 Iron deficiency anemia, unspecified; E87.1 Hypo-osmolality and hyponatremia; B96.1 Klebsiella pneumoniae [K. pneumoniae] as the cause of diseases classified elsewhere; B95.2 Enterococcus as the cause of diseases classified elsewhere; M86.8X7 Other osteomyelitis, ankle and foot; B95.62 Methicillin resistant Staphylococcus aureus infection as the cause of diseases classified elsewhere; G82.20 Paraplegia, unspecified; Z91.030 Bee allergy status; Z80.1 Family history of malignant neoplasm of trachea, bronchus and lung; Z80.3 Family history of malignant neoplasm of breast; Z87.891 Personal history of nicotine dependence; Z79.1 Long term (current) use of non-steroidal anti-inflammatories (NSAID); Z79.899 Other long term (current) drug therapy; Z93.3 Colostomy status; Z68.1 Body mass index [BMI] 19.9 or less, adult